=== PATIENT | female | born 1945 | race Caucasian/White ===

== ENCOUNTER → 2017-04-12 | Outpatient (CLI) | payer SELFPAY ==
--- NOTE | 2017-04-12 11:31 | CT ---
HISTORY: Screening. Family history of heart disease. Study: Cardiac calcium scoring. Technique: Multiple axial images of the chest were obtained on a [address] from the main pulmonary artery to the base of the heart. Noncontrast evaluation of the heart was performed for calcium scoring with prospective gating. Findings: A total calcium score of 636 is observed which is between the 75th and 90th percentile for females a maria esther the age of 68. This score implies extensive atherosclerotic plaque with high likelihood of at l east 1 significant coronary narrowing. LM: 36 LAD: 286 LCX: 110 RCA: 204 Extracardiac findings: No pathologically enlarged lymphadenopathy can be observed. No significant pericardial effusion can be identified. The visualized portions of the lung parenchyma are unremarkable. No lytic or blast ic lesions can be identified within the visualized bony thorax. IMPRESSION: A total calcium score of 636 is observed which is between the 75th and 90th percentile for females a maria esther the age of 68. This score implies extensive atherosclerotic plaque with high likelihood of at l east 1 significant coronary narrowing. Reported By:
== END ==
LOC: RAD 09:05
PROVIDERS: ATTEND Internal Medicine
DX: Z13.6 Encounter for screening for cardiovascular disorders (principal)

== ENCOUNTER 2017-11-03 18:45 | Emergency (ER) | payer OTHER ==
--- NOTE | 2017-11-03 18:56 | DR.GENAD ---
HPI - PCP Primary Care Physician: telly - HPI Comment HPI Comment: PATIENT CALL BY RADIOLOGIST FROM HOME TO COME TO ED BECAUSE BRAIN MRI INDICATES POSSIBLR ODONTOID FRACTURE. PATIENT HAVE HISTORY OF FREQUENT FALL. - Complaint/Symptoms Chief Complaint Doctors Comments: ABNORMAL BRAIN MRI. Chief Complaint:: patient had a op mri of the brain and it showed a possible ct fx and they recomended at cervical ct. - Nurses notes reviewed Nurses Notes Review: Yes - Source History Provided: Patient - Mode of Arrival Mode of Arrival: Ambulatory - Timing Onset of Chief Complaint: 11/03/17 Came on: Gradually - Duration Duration: Intermittent Duration: Days <FREDERICK WALSH - Last Filed: 11/03/17 20:48> PMH - PMH Past Medical History: Yes Past Medical History: Arthritis, Hypertension, CO Past Surgical History: Yes Surgical History: Appendectomy, Hysterectomy, Ortho Surgery - Family History History of Family Medical Conditions: Yes Family Medical History: Cancer, CO, Hypertension - Social History Does patient currently use any type of tobacco product: No Have you used tobacco products in the last 12 months: No Type of Tobacco Use: None Does any household member use tobacco: No Alcohol Use: None Do you use any recreational Drugs:: No Lives With: Family Lives Where: Home - infectious screening In the last 2 months have you had wt loss of >10#?: NO Have you had fever, night sweats or hemotysis?: No Have you traveled outside the country in the last 6 months?: No Isolation: Standard <FREDERICK WALSH - Last Filed: 11/03/17 20:48> ROS - Review of Systems Constitutional: Fatigue. negative: Chills, Fever Eyes: negative: Eye Pain, Blurred Vision, Discharge, Photophobia, Diplopia ENTM: negative: Ear Pain, Nose Pain, Nose Discharge, Nose Congestion, Throat Pain Respiratoy: Short of Breath (ONEXERTION). negative: Productive Cough, Wheezing , Hemoptysis Cardiovascular: Edema (TRACE). negative: Chest Pain Gastrointestinal/Abdominal: negative: Abdominal Pain, Nausea, Vomiting Genitourinary: negative: Dysuria, Hematuria Neurological: Headache, Numbness, Paresthesia (CHRONIC DUE TO NEUROPATHY.) Musculoskeletal: Muscle Pain Integumentary: No Symptoms Reported Hematologic/Lymphatic: No Symptoms Reported Endocrine: No Symptoms Reported All Other Systems: Reviewed and Negative <FREDERICK WALSH - Last Filed: 11/03/17 20:48> PE - General Limitations: No Limitations General Appearance: Alert - Head Head Exam: Normal Inspection - Eyes Eye exam: PERRL, EOMI. negative: Scleral Icterus, Conjunctival Injection, Periorbital Swelling, Periorbital Tenderness - ENT ENT Exam: Normal External Ear Exam External Ear Exam: Normal External Inspection TM/Canal Exam: Bilateral Normal Nose Exam: Normal Nose Exam Mouth Exam: Normal Inspection Throat Exam: Normal Inspection - Neck Neck Exam: Trachea Midline. negative: Tenderness, Meningismus, Lymphadenopathy - Chest Chest Inspection: Symmetric Chest Wall Rise - Respiratory Respiratory Exam: Normal Lung Sounds Bilat Respiratory Exam: Bilateral Rhonchi, Lower Rhonchi - Cardiovascular Cardiovascular Exam: Regular Rate, Normal Rhythm, Normal Heart Sounds - Abdominal Exam Abdominal Exam: Normal Bowel Sounds, Soft. negative: Tenderness - Extremities Extremities Exam: Edema (TRACE) - Back Back Exam: Paraspinal Tenderness - Psychiatric Psychiatric Exam: Normal Affect, Normal Mood - Skin Skin Exam: Erythema <NICOFREDERICK - Last Filed: 11/03/17 20:48> - Vital Signs Vitals: Temperature 98.9 F Pulse Rate 92 Respiratory Rate 16 Blood Pressure 249/121 O2 Sat by Pulse Oximetry 98 MDM - Additional Information Additional Information Obtained From: Family - Differential Diagnosis Differential Diagnosis: ABNORNAL MRI BRAIN, ODNTOID FRACTURE CONCERNING, HEADACHE, HTN. <NICOFREDERICK - Last Filed: 11/03/17 20:48> Course - Treatment Treatment: SEE ORDERS - Education/Counseling Education/Counseling: Patient, Family Educated On: Diagnosis <NICOFREDERICK - Last Filed: 11/03/17 20:48> - Consultation Called: 21:50 Call Returned: 21:50 (Dr. Cookie Liz will see the patient in his office next week at [facility]- [phone]) Consultation Comments: [address] [place] [address] called states they are on diversion and cannot accept patient in transfer. Dr. Cookie Liz, neurosurgeon at [facility] called and the patient discussed and states since CT does not show an acute fracture he will see the patient in his office next week. Family to call the office at [phone] for followup. Patient is to wear the C-collar at all times. Patient and daughter informed of Dr. Liz recommendations and agrees to followup as outpatient. Family informed to return to emergency room or go to ER [facility] if any neurological change or if the patient gets worst. - Education/Counseling Education/Counseling: Patient, Family Educated On: Treatment, Diagnosis, Needs for Follow Up <VICKIE HATFIELD - Last Filed: 11/03/17 22:03> ROR - Labs Reviewed Laboratory Results Reviewed?: Yes Result Diagrams: 11/03/17 19:00 11/03/17 19:00 - XRAY XRAY Interpreted by: Radiologist XRAY Findings: REPORT DISCUSS WITH PATIENT AND DAUGHTER. <FREDERICK WALSH - Last Filed: 11/03/17 20:48> - Labs Reviewed Result Diagrams: 11/03/17 19:00 11/03/17 19:00 - XRAY XRAY Interpreted by: Radiologist (CT cervical spine: No evidence for traumatic injury of the crvical spine.Previously question fracture of the odontoid process demostrates degenerative change and posterior angulation of the dens; however there is no acute fracture of the dens.) <VICKIE HATFIELD - Last Filed: 11/03/17 22:03> - Labs Reviewed Laboratory: WBC 6.0 X10^3/uL (3.6-10.0) 11/03/17 19:00 RBC 3.38 X10^6/uL (3.5-5.4) L 11/03/17 19:00 Hgb 10.8 g/dL (12.0-16.0) L 11/03/17 19:00 Hct 32.0 % (36.0-47.0) L 11/03/17 19:00 MCV 94.9 fL (80.0-100.0) 11/03/17 19:00 MCH 31.9 pg (27.0-34.0) 11/03/17 19:00 MCHC 33.6 g/dL (33.0-35.0) 11/03/17 19:00 RDW 15.8 % (11.6-16.5) 11/03/17 19:00 Plt Count 242 X10^3/uL (150.0-450.0) 11/03/17 19:00 MPV 8.3 fL (7.4-11.0) 11/03/17 19:00 Neut % 61.6 % (42.0-75.0) 11/03/17 19:00 Lymph % 28.8 % (21.0-51.0) 11/03/17 19:00 [place] % 6.5 % (0.0-13.0) 11/03/17 19:00 Eos % 2.4 % (0.9-2.9) 11/03/17 19:00 Baso % 0.7 % (0.2-1.0) 11/03/17 19:00 Neut # 3.7 x10^3/uL (2.2-4.8) 11/03/17 19:00 Lymph # 1.7 X10^3/uL (1.3-2.9) 11/03/17 19:00 [place] # 0.4 x10^3/uL (0.3-0.8) 11/03/17 19:00 Eos # 0.1 x10^3/uL (0.0-0.2) 11/03/17 19:00 Baso # 0.0 X10^3/uL (0.0-0.1) 11/03/17 19:00 Absolute Nucleated RBC 0.0 /100WBC 11/03/17 19:00 INR Target Range - 11/03/17 19:00 INR 0.92 (0.8-1.3) 11/03/17 19:00 PTT 29.9 SECONDS (22.9-36.5) 11/03/17 19:00 PTT Comment - 11/03/17 19:00 Sodium 139 mmol/L (136-145) 11/03/17 19:00 Corrected Sodium TNP 11/03/17 19:00 Potassium 3.7 mmol/L (3.5-5.1) 11/03/17 19:00 Chloride 104 mmol/L (98-107) 11/03/17 19:00 Carbon Dioxide 29.9 mmol/L (21-32) 11/03/17 19:00 BUN 24 mg/dL (7-18) H 11/03/17 19:00 Creatinine 1.04 mg/dL (0.55-1.02) H 11/03/17 19:00 Est GFR (MDRD) Af Amer > 60 (>60) 11/03/17 19:00 Est GFR (MDRD) Non-Af 55 (>60) L 11/03/17 19:00 Glucose 104 mg/dL (65-99) H 11/03/17 19:00 Calcium 8.9 mg/dL (8.5-10.1) 11/03/17 19:00 Corrected Calcium 9.9 mg/dL (8.5-10.1) 11/03/17 19:00 Total Bilirubin 0.20 mg/dL (0.2-1.0) 11/03/17 19:00 AST 18 Units/L (15-37) 11/03/17 19:00 ALT 22 Units/L (12-78) 11/03/17 19:00 Alkaline Phosphatase 157 Units/L (46-116) H 11/03/17 19:00 Total Protein 6.4 g/dL (6.4-8.2) 11/03/17 19:00 Albumin 2.8 g/dL (3.4-5.0) L 11/03/17 19:00 Globulin 3.6 g/dL (2.5-4.5) 11/03/17 19:00 Albumin/Globulin Ratio 0.8 Ratio (1.1-2.1) L 11/03/17 19:00 <FREDERICK WALSH - Last Filed: 11/03/17 20:48> <VICKIE HATFIELD - Last Filed: 11/03/17 22:03> - Diagnosis Discharge Problem: Abnormal brain MRI, Probable old fracture Odontoid, Essential hypertension, severe spondylosis C4-5, C5-6, C6-7, History of multiple falls - Discharge Plan Disposition: HOME, SELF-CARE Condition: Stable - Follow ups/Referrals Follow ups/Referrals: ARTURO ALCARAZ [Primary Care Provider] - 3 days - Instructions Instructions: Cervical Collar, Spondylolisthesis With Rehab-SportsMed, Hypertension, [id number], Fall Prevention in the Home, Degenerative Disk Disease
[2017-11-03 19:02] VITALS: BMI 26.1
[2017-11-03 19:15] LABS: BASOPHILS % (AUTO) 0.7 % (0.2-1.0); EOSINOPHILS # (AUTO) 0.1 x10^3/uL (0.0-0.2); EOSINOPHILS % (AUTO) 2.4 % (0.9-2.9); HEMOGLOBIN 10.8 g/dL (12.0-16.0); LYMPHOCYTES # (AUTO) 1.7 X10^3/uL (1.3-2.9); LYMPHOCYTES % (AUTO) 28.8 % (21.0-51.0); MEAN CORPUSCULAR HEMOGLOBIN 31.9 pg (27.0-34.0); MEAN CORPUSCULAR HGB CONC 33.6 g/dL (33.0-35.0); MEAN CORPUSCULAR VOLUME 94.9 fL (80.0-100.0); MEAN PLATELET VOLUME 8.3 fL (7.4-11.0); MONOCYTES # (AUTO) 0.4 x10^3/uL (0.3-0.8); MONOCYTES % (AUTO) 6.5 % (0.0-13.0); NEUTROPHILS # (AUTO) 3.7 x10^3/uL (2.2-4.8); NEUTROPHILS % (AUTO) 61.6 % (42.0-75.0); PLATELET COUNT 242 X10^3/uL (150.0-450.0); RED BLOOD COUNT 3.38 X10^6/uL (3.5-5.4); RED CELL DISTRIBUTION WIDTH 15.8 % (11.6-16.5)
[2017-11-03 19:25] LABS: ALANINE AMINOTRANSFERASE 22 Units/L (12-78); ALBUMIN 2.8 g/dL (3.4-5.0); ALKALINE PHOSPHATASE 157 Units/L (46-116); ASPARTATE AMINO TRANSFERASE 18 Units/L (15-37); BLOOD UREA NITROGEN 24 mg/dL (7-18); CALCIUM 8.9 mg/dL (8.5-10.1); CARBON DIOXIDE 29.9 mmol/L (21-32); CHLORIDE 104 mmol/L (98-107); COR CA(FOR HYPOALB) 9.9 mg/dL (8.5-10.1); CREATININE 1.04 mg/dL (0.55-1.02); SODIUM 139 mmol/L (136-145); TOTAL PROTEIN 6.4 g/dL (6.4-8.2); eGFR BLACK RACES > 60 (>60); eGFR NON BLACK RACES 55 (>60)
[2017-11-03] MEDS ORDERED: CATAPRES TAB 0.1 MG ONE (19:53)
[2017-11-03] MEDS ORDERED: CATAPRES TAB 0.1 MG PO ONE (19:53)
--- NOTE | 2017-11-03 19:58 | CT ---
CT cervical spine without contrast Indication:Neck pain Comparison: Technique: Multiple axial images of the cervical spine were obtained from the skull base to the thora cic inlet without administration of IV contrast. Sagittal and coronal reformats were performed and r eviewed. Findings: No acute fracture identified within the cervical spine. There is a grade 1 anterolisthesis of C3 with approximate 3-4 mm anterior translation of the C3 vertebral body likely on a degenerative basis give n the fairly severe C3-4 facet arthropathy. There is moderate to severe spondylosis at C4-5, C5-6, C6 -7 and C7-T1 with anterior osteophytes noted. Mild centrilobular emphysema is noted with biapical ple ural parenchymal scarring. There is persistent posterior angulation of the odontoid process with moderate to severe degenerative change at the atlantodental joint and posterior pannus formation; however, no fracture is identified within the odontoid process. There is no significant mass effect on the cervical cord at the foramen magnum. There is no malalignment of the atlantoaxial or atlantodental joints. IMPRESSION: No evidence for traumatic injury of the cervical spine. Previously question fracture of the odontoid process demonstrates degenerative change and posterior a ngulation of the dens potentially representing prior fracture deformity however there is no acute fra cture of the dens. The atlantoaxial and atlanto occipital joints are symmetric. There is no evidence of mass effect on the cervical cord given the moderate severe degenerative change at the atlantodenta l joint. Grade 1 anterolisthesis of C3 likely on a degenerative basis given the facet DJD and lack of malalign ment of the facet joints. Reported By:
[2017-11-03 23:15] VITALS: BP 188/86
== END 2017-11-03 23:00 | disposition home or self-care (01) ==
LOC: ER 18:49
DX: R94.02 Abnormal brain scan (principal); I10 Essential (primary) hypertension; M47.892 Other spondylosis, cervical region; Z91.81 History of falling; R42 Dizziness and giddiness
CPT/HCPCS: 36415; 70547; 70551; 72125; 80053; 85025; 85610; 85730; 96365; 99283; A4222

== ENCOUNTER → 2017-11-03 | Outpatient (CLI) | payer OTHER ==
--- NOTE | 2017-11-03 14:17 | MRI ---
STUDY: MRI OF THE BRAIN WITHOUT GADOLINIUM HISTORY: History of falls. Several recent falls. Unsteady gait. Technique: Multiplanar multi-sequence MRI of the brain was obtained utilizing standard departmental p rotocol. Sagittal and axial T1, axial T2, FLAIR, diffusion (DWI/ADC) and GRE images through the brain were performed. Comparison: None. Findings: The sulci, cisterns and ventricles are age appropriate. There are thin confluent and a few scattered foci of T2 prolongation in the periventricular and subcortical white matter of both hemispheres. This is a nonspecific finding which likely represents mild microangiopathic change in a patient of this a ge. There is no evidence of acute territorial infarction, hemorrhage, mass, mass effect, or midline shift . There are no abnormal intra-axial or extra-axial fluid collections. The major intracranial vascular flow voids appear intact. The vertebral arteries are codominent. There is bilateral aphakia. At the note is made of a possible fracture deformity involving the odontoid process. There is acute l ordotic angulation at this location. Additionally, there is exaggerated cervical lordosis centered at C2, with associated contouring along the dorsal aspect of the spinal cord at this location. IMPRESSION: 1. No evidence of acute intracranial abnormality. 2. Mild nonspecific white matter change. 3. Findings concerning for fracture deformity involving the odontoid process, with exaggerated cervi justyn lordosis centered at C2. 4. Would consider CT examination of the cervical spine for further evaluation. Reported By:
--- NOTE | 2017-11-03 16:18 | MRI ---
STUDY: MRA NECK History: History falls. Unsteady gait. Technique: A 2D ixal-uo-onofal MRA examination of the neck was performed. Subsequently, a 3D TOFMRA e xamination of the neck was performed. 3D reformatted images were performed and reviewed. Comparison: None. Findings: There is image degradation due to patient motion. MRA examination of the neck shows focal s tenosis involving the proximal right internal carotid artery over a short segment. Stenosis is estima neva at approximately 70%. There is less than 50% stenosis at the origin of the left ICA. The vertebra l arteries are codominant. There is normal flow related enhancement in both vertebral arteries, to th e level of their dural insertion and to the basilar artery. Impression: 1. Approximately 70% stenosis at the origin of the right ICA. 2. Less than 50% stenosis at the origin of the left ICA. Reported By:
== END ==
LOC: RAD 09:52
PROVIDERS: ATTEND Psychiatry & Neurology Neurology
DX: Z91.81 History of falling (principal); R42 Dizziness and giddiness
CPT/HCPCS: 70547; 70551